=== PATIENT | male | born 1945 | race Caucasian/White ===

== ENCOUNTER 2021-07-10 15:25 | Outpatient (CLI) | payer MEDICARE, SELFPAY ==
--- NOTE | ~2021-07-10 | US_ITS ---
EXAMINATION: US carotid duplex BI DATE: 07/10/2021 16:15 INDICATION: Carotid artery stenosis. TECHNIQUE: Grayscale, color Doppler, and pulsed Doppler images of the cervical carotid arteries were obtained. The degree of vessel stenosis is placed in one of the following categories: normal, <50%, 5 0-69%, >=70% but less than near-occlusion, near-occlusion, or total occlusion. Note that percent sten osis relative to normal distal artery lumen diameter is indirectly measured from velocity measurement s as described by Quentin, et al. Radiology 2003; 229:340-346. COMPARISON: None. FINDINGS: RIGHT: The right common carotid artery (CCA) peak systolic velocity (PSV) is 112 cm/s. The right internal ca rotid artery (ICA) PSV is 78 cm/s. The right ICA end-diastolic velocity (EDV) is 19 cm/s. The right I CA/CCA PSV ratio is 0.7. The ICA lumen is obscured by shadowing plaque. There is antegrade flow in th e right vertebral artery. LEFT: The left CCA PSV is 140 cm/s. The left ICA PSV is 102 cm/s. The left ICA EDV is 32 cm/s. The left ICA /CCA PSV ratio is 0.7. Grayscale and color Doppler images yield an estimate of <50% diameter reductio n from plaque in the ICA. There is antegrade flow in the left vertebral artery. IMPRESSION: 1. <50% stenosis in the right internal carotid artery. 2. <50% stenosis in the left internal carotid artery. Reviewed, dictated and finalized at location A. ING MACHINE OPERATOR
== END 2021-07-10 15:26 | disposition home or self-care (01) ==
LOC: ANHIMG 15:29
PROVIDERS: PCP Internal Medicine; Visit Provider Internal Medicine
DX: I65.23 Occlusion and stenosis of bilateral carotid arteries (principal)
CPT/HCPCS: 93880

== ENCOUNTER 2021-09-04 09:39 | Outpatient (CLI) | payer MEDICARE, SELFPAY | END 2021-09-04 09:40 | disposition home or self-care (01) | LOC: ANHAUDASC 09:40 | PROVIDERS: PCP Internal Medicine; Visit Provider Internal Medicine | DX: H93.13 Tinnitus, bilateral (principal); H90.3 Sensorineural hearing loss, bilateral | CPT/HCPCS: 92557; 92567 ==

== ENCOUNTER 2022-01-05 01:31 | Day surgery (SDC) | payer MEDICARE, SELFPAY ==
[2021-12-20 14:54] VITALS: BMI 26.4
--- NOTE | 2022-01-04 16:50 | P.HP_ITS ---
History of Present Illness History of Present Illness Consent: Risks, benefits, and alternatives have been discussed and questions answered. Patient agrees to proceed with procedure. Chief complaint: hx of colon polyps Narrative: Tay Reed is a 76 year old male who was referred for colon cancer screening. He had an adenomatous polyp removed about 4 years ago. Also both of his parents have had colon cancer. He had some issues with his bowels a while b ack , with constipation. He states he does take a stool softener but the situation is worse . he says the stools are always very narrowing soft. I told that this generally indicates that the stools moving too quickly through his colon, being extruded by his anus because it is too soft. Review of Systems Review of Systems: All systems reviewed & are unremarkable except as noted in HPI and below PMFSH Past Medical History Medical History Constipation Overweight (BMI 25.0-29.9) Social History Social History Smoking packs per day: 2 Smoking cigarettes per day: 40.0 Smoking status: Former smoker Tobacco type: cigarettes Alcohol intake: current Drinks per week: 14 Substance use: never Substance use type: does not use Living arrangements: with family Spiritual care concerns: No Meds Home Medications and Allergies Home Medications Medication Instructions Recorded Confirmed Type atorvastatin 20 mg tablet 20 mg PO DAILY 01/04/21 12/20/21 History ezetimibe 10 mg tablet (Zetia) 10 mg PO DAILY 01/04/21 12/20/21 History metformin 500 mg tablet 500 mg PO DAILY 01/04/21 12/20/21 History multivitamin 1 tablet PO DAILY 01/04/21 12/20/21 History Allergies Allergy/AdvReac Type Severity Reaction Status Date / Time No Known Allergies Allergy Unknown Verified 01/05/22 11:52 Exam Resp: Auscultation: clear to auscultation bilaterally Cardio: Rate: regular rate Rhythm: regular rhythm GI: GI Palp: Yes Soft to palpation and No Tenderness to palpation present (GI) Assessment and Plan Assessment and plan (1) Colon cancer screening: Code(s): Z12.11 - Encounter for screening for malignant neoplasm of colon Status: Acute Assessment and Plan: Colonoscopy with possible biopsy or polypectomy or cautery or injection of substances.
[2022-01-05 11:54] VITALS: BP 134/75; PULSE 80; RESP 16; TEMP 36.2; O2SAT 97; BMI 25.9
[2022-01-05 12:07] LABS: Glucose Point of Care 116 mg/dl (65-105)
[2022-01-05] MEDS: LACTATED RINGERS 1,000 ML 150 ML IV CONT (12:07)
--- NOTE | 2022-01-05 12:25 | P.PNAN_ITS ---
Anes - Initial Pre Proc Eval Procedure: Operation Date: 01/05/22 13:00 Proposed Procedures p Screening Colonoscopy - Landry Castrejon MD Date/Time: 01/05/22 12:25 Surgeon: Landry Castrejon MD Pre Op Diagnosis: hx of colon polyps Patient Data Age: 76 Gender: M Height: 1.8 m Weight: 84.4 kg Last Vital Signs Temp 97.2 F L 01/05/22 11:54 Pulse 80 01/05/22 11:54 Resp 16 01/05/22 11:54 BP 134/75 01/05/22 11:54 Pulse Ox 97 01/05/22 11:54 O2 Del Method Room Air 01/05/22 11:54 Allergies Allergy/AdvReac Type Severity Reaction Status Date / Time No Known Allergies Allergy Unknown Verified 01/05/22 11:52 Home Medications Medication Instructions Recorded Confirmed Type atorvastatin 20 mg tablet 20 mg PO DAILY 01/04/21 01/05/22 History ezetimibe 10 mg tablet (Zetia) 10 mg PO DAILY 01/04/21 01/05/22 History metformin 500 mg tablet 500 mg PO DAILY 01/04/21 01/05/22 History multivitamin 1 tablet PO DAILY 01/04/21 01/05/22 History Laboratory Tests 01/05/22 12:01 POC Capillary Glucose 116 mg/dl H mg/dl (65-105) Patient hx anesthesia problems: none Family hx anesthesia problems: none Results Review: All pre-operative results and documents have been reviewed as part of the pre- operative evaluation. [facility] Past Medical History Medical History Constipation Overweight (BMI 25.0-29.9) Social History Social History Smoking packs per day: 2 Smoking cigarettes per day: 40.0 Smoking status: Former smoker Tobacco type: cigarettes Alcohol intake: current Drinks per week: 14 Substance use: never Substance use type: does not use Living arrangements: with family Spiritual care concerns: No Anes - Eval Final PreProcedure Day of Procedure 01/05/22 12:25 Patient weight: normal Heart: regular rate and rhythm Lungs: clear to auscultation Airway: Mallampati scale class II Neurological: alert and oriented Last oral intake: >/= 8 hours ASA classification: II Emergent: no Anesthetic plan: proceed Anesthesia type and monitoring: general GIVS and standard monitoring Results Review: All pre-operative results and documents have been reviewed as part of the pre-operative evaluation. Informed Consent: The patient's anesthetic plan and its attendant risks and benefits were discussed with the patient/family/POA. Questions were solicited and answers provided to the satisfaction of the patient/family/POA.
[2022-01-05 13:26] VITALS: BP 104/69; PULSE 72; RESP 18; O2SAT 96
[2022-01-05 13:36] VITALS: BP 120/74; PULSE 66; RESP 18; O2SAT 98
[2022-01-05 13:46] VITALS: BP 118/79; PULSE 70; RESP 20; O2SAT 99
== END 2022-01-05 13:53 | disposition home or self-care (01) ==
PROVIDERS: PCP Internal Medicine; Visit Provider Internal Medicine Gastroenterology
PROC: 0DJD8ZZ Inspection of Lower Intestinal Tract, Via Natural or Artificial Opening Endoscopic (ICD-10-PCS; CPT 45378; principal; 2022-01-05 13:00)
DX: Z12.11 Encounter for screening for malignant neoplasm of colon (principal); K63.5 Polyp of colon; Z80.0 Family history of malignant neoplasm of digestive organs; K57.30 Diverticulosis of large intestine without perforation or abscess without bleeding; K64.8 Other hemorrhoids; Z79.84 Long term (current) use of oral hypoglycemic drugs; Z87.891 Personal history of nicotine dependence
CPT/HCPCS: 45380; 82948; 88305; J2704; J7120

== ENCOUNTER 2025-01-29 12:09 | Outpatient (CLI) | payer MEDICARE, SELFPAY ==
--- NOTE | ~2025-01-29 | XR_ITS ---
XR lumbar spine 2-3V Indication: Low back pain Comparison: None Findings: Moderate loss of vertebral heights, no fracture or subluxation. Moderate to severe loss of disc height at L3-4, L4-5 and L5-S1. Soft tissues unremarkable Impression: No acute abnormality. Reviewed, dictated and finalized at location A. Impression: No acute abnormality.
--- OUTSIDE RECORDS SUMMARY | 2025-01-29 12:22 | XMS_ITS | Clinical Summary ---
Author Organization [facility] Address [address] [place] [address] Care Team Providers Care Business Liaison Officer Name Role Phone Hayes Gutiérrez MD Primary Care Provider Allergies No known active allergies Medications No known medications Encounters Date Type Department Care Team Description 01/26/2025 2:00 PM CDT - 01/26/2025 2:03 PM CDT Emergency [facility] Emergency Department [address] [place] [address] Acute left-sided low back pain without sciatica (Primary Dx) Discharge Disposition: Discharge to home or self care from Last 3 Months Social History Tobacco Use Types Packs/Day Years Used Date Smoking Tobacco: Never Assessed Personal Safety Answer Date Recorded Have you ever been in or are you currently in a harmful physical or emotional relationship or is someone making you feel afraid or unsafe? Denies 01/26/2025 Sex and Gender Information Value Date Recorded Sex Assigned at Not on file Legal Sex Male 10:34 AM CDT Gender Identity Not on file Sexual Orientation Not on file Last Filed Vital Signs Vital Sign Reading Time Taken Comments Blood Pressure 156/75 01/26/2025 1:51 PM CDT Pulse 62 01/26/2025 1:51 PM CDT Temperature 36.6 C (97.9 F) 01/26/2025 1:51 PM CDT Respiratory Rate 16 01/26/2025 1:51 PM CDT Oxygen Saturation 98% 01/26/2025 1:51 PM CDT Inhaled Oxygen Concentration - - Weight 84.8 kg (187 lb) 01/26/2025 10:38 AM CDT Height - - Body Mass Index - - Plan of Treatment Health Maintenance Due Date Last Done Comments Depression Screening 1945 Fall Risk Assessment 1945 Hepatitis C Screening 1945 DTaP/Tdap/Td Vaccine (1 - Tdap) 1956 Hepatitis B Screening 09/17/1963 Pneumococcal vaccine 65+ (1 of 1 - PCV) 09/17/1995 Zoster Vaccine (1 of 2) 09/17/1995 Well Visit 65+ 2010 Influenza Vaccine (#1) 2025 Procedures Procedure Name Priority Date/Time Associated Diagnosis Comments CT ABDOMEN PELVIS W CONTRAST ED 01/26/2025 12:58 PM CDT EGFR STAT 01/26/2025 10:57 AM CDT DIFFERENTIAL AUTO STAT 01/26/2025 10: 57 AM CDT CBC WITH AUTO DIFFERENTIAL STAT 01/26/2025 10:57 AM CDT COMPREHENSIVE METABOLIC PANEL STAT 01/26/2025 10:57 AM CDT from Last 3 Months Results * CT Abdomen Pelvis W Contrast (01/26/2025 12:58 PM CDT) Anatomical Region Laterality Modality Body N/A Computed Tomogra phy 01/26/2025 1:1 3 PM CDT Narrative 01/26/2025 1:23 PM CDT EXAM DESCRIPTION: CT ABDOMEN PELVIS W CONTRAST REASON FOR STUDY: pain in left side back/buldge left side abdomen Left sided back pain started Saturday, after cutting down some trees. TECHNIQUE: CT scan of the abdomen and pelvis performed with intravenous and without oral contrast using helical scanning technique with dynamic intravenous contrast injection. Reconstructed coronal and sagittal MPR images reviewed. All images stored on PACS. Automated exposure control was used as a dose optimization technique for this examination. CONTRAST TYPE/DOSE: 75mL of IOVERSOL 350 MG IODINE/ML INTRAVENOUS SYRINGE injected via intravenous COMPARISON: None REFERENCE: Per ACR white paper recommendations, unless otherwise specified no follow-up imaging is recommended for incidental renal and adrenal lesions per consensus recommendations based on imaging criteria. Further lab evaluation could be pursued based on clinical findings. FINDINGS: LOWER CHEST: Severe coronary atherosclerotic calcification. Subsegmental atelectasis. LIVER: No concerning lesions. GALLBLADDER/BILE DUCTS: No significant biliary ductal dilatation. SPLEEN: Normal size. No focal concerning lesions. PANCREAS: No significant ductal dilatation or discrete lesion. ADRENALS: No measurable nodule. KIDNEYS/URETERS: Subcentimeter hypodensities too small to further characterize. No hydronephrosis. BLADDER/URINARY: No significant wall thickening. REPRODUCTIVE: No significant abnormality. GASTROINTESTINAL: Colonic diverticulosis without acute inflammation. Diffuse moderate colonic stool burden. Normal-appearing appendix. LYMPH NODES: No pathologically enlarged abdominal or pelvic lymphadenopathy. PERITONEUM/RETROPERITONEUM: No ascites or free air. VASCULATURE: Multifocal atherosclerotic changes of the abdominal aorta and its major branches. No abdominal aortic aneurysm. MUSCULOSKELETAL: Small fat containing right inguinal hernia. Otherwise, no significant abdominal wall hernia. Postsurgical changes status post left total hip arthroplasty. No definite acute hardware complication. No acute displaced fracture. Multilevel degenerative changes of the visualized spine. OTHER: No significant abnormality. IMPRESSION: 1. No acute abnormality within the abdomen or pelvis. 2. Small fat containing right inguinal hernia. No significant flank or abdominal wall hernia. 3. Incidental and chronic findings as above. THIS IS AN ELECTRONICALLY VERIFIED FINAL REPORT 01/26/2025 1:23 PM - Electronically signed by Chuy Morales M.D. NS: NS Report ID: [id number] Reading Location: [id number] Procedure Note Chuy Morales MD - 01/26/2025 EXAM DESCRIPTION: CT ABDOMEN PELVIS W CONTRAST REASON FOR STUDY: pain in left side back/buldge left side abdomen Left sided back pain started Saturday, after cutting down some trees. TECHNIQUE: CT scan of the abdomen and pelvis performed with intravenousand without oral contrast using helical scanning technique with dynamic intravenous contrast injection. Reconstructed coronal and sagittal MPRimages reviewed. All images stored on PACS. Automated exposure control was usedas a dose optimization technique for this examination. CONTRAST TYPE/DOSE: 75mL of IOVERSOL 350 MG IODINE/ML INTRAVENOUSSYRINGE injected via intravenous COMPARISON: None REFERENCE: Per ACR white paper recommendations, unless otherwise specifiedno follow-up imaging is recommended for incidental renal and adrenal lesionsper consensus recommendations based on imaging criteria. Further labevaluation could be pursued based on clinical findings. FINDINGS: LOWER CHEST: Severe coronary atherosclerotic calcification.Subsegmental atelectasis. LIVER: No concerning lesions. GALLBLADDER/BILE DUCTS: No significant biliary ductal dilatation. SPLEEN: Normal size. No focal concerning lesions. PANCREAS: No significant ductal dilatation or discrete lesion. ADRENALS: No measurable nodule. KIDNEYS/URETERS: Subcentimeter hypodensities too small to further characterize. No hydronephrosis. BLADDER/URINARY: No significant wall thickening. REPRODUCTIVE: No significant abnormality. GASTROINTESTINAL: Colonic diverticulosis without acute inflammation.Diffuse moderate colonic stool burden. Normal-appearing appendix. LYMPH NODES: No pathologically enlarged abdominal or pelviclymphadenopathy. PERITONEUM/RETROPERITONEUM: No ascites or free air. VASCULATURE: Multifocal atherosclerotic changes of the abdominal aortaand its major branches. No abdominal aortic aneurysm. MUSCULOSKELETAL: Small fat containing right inguinal hernia. Otherwise,no significant abdominal wall hernia. Postsurgical changes status post left total hip arthroplasty. No definite acute hardware complication. Noacute displaced fracture. Multilevel degenerative changes of the visualizedspine. OTHER: No significant abnormality. IMPRESSION: 1. No acute abnormality within the abdomen or pelvis. 2. Small fat containing right inguinal hernia. No significant flank or abdominal wall hernia. 3. Incidental and chronic findings as above. THIS IS AN ELECTRONICALLY VERIFIED FINAL REPORT 01/26/2025 1:23 PM - Electronically signed by Chuy Morales M.D. NS: NS Report ID: [id number] Reading Location: [place] [address] Gisel Terry NP [facility] CT PROCEDURES Final Resul t * eGFR (01/26/2025 10:57 AM CDT) eGFR 90 >=60 mL/min/1. 73 m2 Comment: Interpretive Data Reference Interval Normal >/= 90 mL/min/1.73m2 Mildly decreased* 60 - 89 mL/min/1.73m2 Mildly to moderately decreased 45 - 59 mL/min/1.73m2 Moderately to severely decreased 30 - 44 mL/min/1.73m2 Severely decreased 15 - 29 mL/min/1.73m2 Kidney Failure < 15 mL/min/1.73m2 *Relative to young adult level Estimated glomerular filtration rate is determined by the 2020 CKD-EPI equation recommended by the National Kidney Foundation (A Unifying Approach to GFR Estimation: Recommendations of the NKF-ASK Task Force on Reassessing the Inclusion of Race in Diagnosing Kidney Disease, JASN 2020). The CKD-EPI equation should not be used for patients with unstable renal function and has not been validated in children and those over 70. Current interpretive data was last reviewed 2021. Blood 01/26/2025 10:5 7 AM CDT 01/26/2025 11:01 AM CDT us Gisel Terry NP LAB BLOOD ORDERABLES Final Re sult [facility] ([place]) 1 [facility] Department of Laboratories [id number] * Differential, auto (01/26/2025 10:57 AM CDT) Neutrophil abs 4.01 1.50 - 6.50 K/cumm Imm gran abs 0.08 0.00 - 0.10 K/cumm [facility] ([place]) Lymphocyte abs 2.37 0.80 - 3.30 K/cumm [facility] ([place]) Monocyte abs 0.51 0.20 - 0.80 K/cumm [facility] ([place]) Eosinophil abs 0.08 0.00 - 0.50 K/cumm [facility] ([place]) Basophil abs 0.03 0.00 - 0.10 K/cumm [facility] ([place]) Neutrophil pct 56.7 % [facility] ([facility]) Comment: Interpretive Data Percent cell count reference ranges are not reported, since discordance with absolute values may lead to misinterpretation of CBC data. Current Interpretive Data was last revised on 2017. Imm gran pct 1.1 % [facility] ([facility]) Comment: Interpretive Data Percent cell count reference ranges are not reported, since discordance with absolute values may lead to misinterpretation of CBC data. Current Interpretive Data was last revised on 2017. Lymphocyte pct 33.5 % [facility] ([facility]) Comment: Interpretive Data Percent cell count reference ranges are not reported, since discordance with absolute values may lead to misinterpretation of CBC data. Current Interpretive Data was last revised on 2017. Monocyte pct 7.2 % [facility] ([facility]) Comment: Interpretive Data Percent cell count reference ranges are not reported, since discordance with absolute values may lead to misinterpretation of CBC data. Current Interpretive Data was last revised on 2017. Eosinophil pct 1.1 % [facility] ([facility]) Comment: Interpretive Data Percent cell count reference ranges are not reported, since discordance with absolute values may lead to misinterpretation of CBC data. Current Interpretive Data was last revised on 2017. Basophil pct 0.4 % [facility] ([facility]) Comment: Interpretive Data Percent cell count reference ranges are not reported, since discordance with absolute values may lead to misinterpretation of CBC data. Current Interpretive Data was last revised on 2017. Blood 01/26/2025 10:5 7 AM CDT 01/26/2025 11:01 AM CDT us Gisel Terry CLIP LOADING MACHINE ADJUSTER LAB BLOOD ORDERABLES Final Re sult [facility] ([place]) 1 [facility] Department of Laboratories [id number] * (ABNORMAL) CBC with auto differential (01/26/2025 10:57 AM CDT) WBC 7.08 3.80 - 9.90 K/cumm Hgb 16.7 13.0 - 17.5 g/dL [facility] ([place]) Hct 48.6 38.9 - 50.3 % [facility] ([place]) Plt 286 150 - 400 K/cumm [facility] ([place]) MPV 9.3 9.1 - 12.3 fL [facility] ([place]) RBC 5.03 4.30 - 5.80 M/cumm [facility] ([place]) MCV 96.6(H) 81.3 - 96.4 fL [facility] ([place]) MCH 33.2 27.1 - 33.3 pg [facility] ([place]) MCHC 34.4 32.3 - 35.7 g/dL [facility] ([place]) RDW CV 12.6 11.1 - 14.9 % [facility] ([place]) RDW SD 45.1 35.7 - 48.1 fL [facility] NRBC abs 0.00 0.00 - 0.01 K/cumm [facility] ([place]) Blood 01/26/2025 10:5 7 AM CDT 01/26/2025 11:01 AM CDT us Gisel Terry NP LAB BLOOD ORDERABLES Final Re sult [facility] ([place]) 1 [facility] Department of Laboratories [id number] * (ABNORMAL) Comprehensive metabolic panel (01/26/2025 10:57 AM CDT) Sodium 135 135 - 145 mmol/L [facility] Potassium, pl 4.4 3.3 - 4.9 mmol/L [facility] Chloride 98 97 - 110 mmol/L [facility]) CO2 23 22 - 32 mmol/L [facility] ([place]) Anion gap 14 2 - 15 mmol/L [facility] BUN 13 6 - 25 mg/dL [facility] ([place]) Creatinine 0.79(L) 0.80 - 1.30 mg/dL [facility] ([place]) Glucose 135 70 - 199 mg/dL [facility] Comment: Interpretive Data Fasting glucose >/= 126 mg/dl is diagnostic for diabetes. Fasting is defined as no caloric intake for at least 8 hours. Fasting glucose between 100 mg/dl to 125 mg/dl is diagnostic of prediabetes. In a patient with classic symptoms of hyperglycemia or hyperglycemic crisis, a random glucose >/= 200 mg/dl is diagnostic for diabetes. In the absence of unequivocal hyperglycemia, results should be confirmed by repeat testing. The classification and Diagnosis of Diabetes Diabetes Care 2021; 46: S19-S40. Current interpretive data was last revised 2022. Calcium 10.0 8.5 - 10.3 mg/dL [facility] ([place]) Bilirubin, total 0.7 0.1 - 1.2 mg/dL [facility] ([place]) Protein, pl 7.5 6.5 - 8.5 g/dL [facility] ([place]) Albumin 4.7 3.5 - 5.0 g/dL [facility] ([place]) Alk phos 68 40 - 130 Units/L [facility] ([place]) ALT 22 7 - 55 Units/L [facility] ([place]) Comment:Hemolysis present. R esults may be affected. AST 31 10 - 50 Units/L [facility] ([place]) Comment:Hemolysis present. R esults may be affected. Blood 01/26/2025 10:5 7 AM CDT 01/26/2025 11:01 AM CDT us Gisel Terry NP LAB BLOOD ORDERABLES Final Re sult [facility] ([place]) 1 [facility] Department of Laboratories [id number] from Last 3 Months Insurance [employer] MEDICARE Care Teams Business Liaison Officer Relationship Specialty Start Date End Date Hayes Gutiérrez MD [address] [place] [address] DEPT INTERNAL MEDICINE [place] [phone] PCP - General Internal Medicine 01/26/25
--- OUTSIDE RECORDS SUMMARY | 2025-01-29 12:22 | XMS_ITS | Clinical Summary ---
Author Organization [facility] Address [address] [place] [address] Care Team Providers Care Sail Repair Person Name Role Phone Hayes Gutiérrez MD Primary Care Provider Social History Tobacco Use Types Packs/Day Years Used Date Smoking Tobacco: Never Assessed Sex and Gender Information Value Date Recorded Sex Assigned at Not on file Legal Sex Male 2:54 PM CDT Gender Identity Not on file Sexual Orientation Not on file Plan of Treatment Health Maintenance Due Date Last Done Comments Hepatitis C Virus (HCV) Screening 1945 Zoster Immunization (1 of 2) 09/17/1995 SARS-COV-2 Immunization ( season) 2024 03/06/2023, 09/22/2022, 01/19/2022, Additional history exists Influenza Immunization (#1) 01/11/202502/11, 01/19/2022, 01/17/2020, Additional history exists TdaP Immunization Completed 01/02/2020 Pneumococcal Immunization (50+ years) Completed 03/06/2023, 01/30/2016 Respiratory Syncytial Virus (RSV) Immunization (Adult) Completed 03/06/2023 Hepatitis B Immunization Aged Out No longer eligible based on patient's age to complete this topic Human Papillomavirus (HPV) Immunization Aged Out No longer eligible based on patient's age to complete this topic Meningococcal Immunization (ACWY) Aged Out No longer eligible based on patient's age to complete this topic Rotavirus Immunization Aged Out No lo nger eligible based on patient's age to complete this topic Insurance MEDICARE [facility] [employer] endocrinology physician Care Teams Sail Repair Person Relationship Specialty Start Date End Date Haeys Gutiérrez MD PCP - General Internal Medicine 11/08/23
== END 2025-01-29 12:10 | disposition home or self-care (01) ==
PROVIDERS: PCP Internal Medicine
DX: M54.50 Low back pain, unspecified (principal)
CPT/HCPCS: 72100

== ENCOUNTER 2025-02-01 07:45 | Outpatient (CLI) | payer MEDICARE, SELFPAY ==
--- NOTE | ~2025-02-01 | US_ITS ---
Examination: US abdomen complete Clinical History: ABD DISCOMFORT;ABD PAIN . Comparison: None Technique: Complete abdominal sonography Findings: Liver: Normal size. Normal echotexture. No intrahepatic biliary ductal dilatation. Normal hepatopedal flow main portal vein. A few calcifications left lobe Common duct: Normal caliber, 3 mm. Gallbladder: No stones. No wall thickening. No pericholecystic fluid. Spleen: Unremarkable. Pancreas: Largely obscured by bowel gas. Kidneys: A few small parenchymal calcifications left kidney. Aorta: No aneurysmal dilatation. Retrohepatic IVC: Unremarkable. IMPRESSION: 1. No acute findings. Reviewed, dictated and finalized at location R. IMPRESSION: 1. No acute findings.
--- OUTSIDE RECORDS SUMMARY | 2025-02-01 08:03 | XMS_ITS | Clinical Summary ---
Author Organization [facility] Address [address] [place] [address] Care Team Providers Care Revenue Coordinator Name Role Phone Hayes Gutiérrez MD Primary Care Provider [phone] Social History Tobacco Use Types Packs/Day Years [...] age to complete this topic Insurance MEDICARE [facility] FIN obstetrical nurse Care Teams Revenue Coordinator Relationship Specialty Start Date End Date Hayes Gutiérrez MD PCP - General Internal Medicine 11/08/23
--- OUTSIDE RECORDS SUMMARY | 2025-02-01 08:03 | XMS_ITS | Clinical Summary ---
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 NS: NS Report ID: [id number] Reading Location: [id number] Procedure Note Chuy Morales MD - 01/26/2025 [...] Chuy Morales M.D. NS: NS Report ID: [id number] Reading Location: [place] [address] Gisel Terry NP IM CT PROCEDURES Final Resul t * eGFR [...] BLOOD ORDERABLES Final Re sult [facility] ([place]) [facility] Department [place] [address] * Differential, auto (01/26/2025 10:57 AM CDT) [...] 01/26/2025 11:01 AM CDT us Gisel Terry [employer] LAB BLOOD ORDERABLES Final Re sult [facility] ([place]) [facility] Department [place] [address] * (ABNORMAL) CBC with auto differential (01/26/2025 [...] ([place]) MCH 33.2 27.1 - 33.3 pg [facility] MCHC 34.4 32.3 - 35.7 g/dL [facility] ([place]) RDW CV 12.6 11.1 - 14.9 % [facility] ([place]) RDW SD 45.1 35.7 - 48.1 fL [facility] ([place]) NRBC abs 0.00 0.00 - 0.01 K/cumm [facility] ([place]) Blood 01/26/2025 10:5 7 AM CDT 01/26/2025 11:01 AM CDT us Gisel Terry NP LAB BLOOD ORDERABLES Final Re sult [facility] ([place]) 1 [facility] Department [place] [address] * (ABNORMAL) Comprehensive metabolic panel (01/26/2025 10:57 AM CDT) Sodium 135 135 - 145 mmol/L [facility] ([place]) Potassium, pl 4.4 3.3 - 4.9 mmol/L [facility] ([place]) Chloride 98 97 - 110 mmol/L [facility]) CO2 23 22 - 32 mmol/L [facility] ([place]) Anion gap 14 2 - 15 mmol/L [facility] ([place]) BUN 13 6 - 25 mg/dL [facility] ([place]) Creatinine 0.79(L) 0.80 - 1.30 mg/dL [facility] ([place] Glucose 135 70 - 199 mg/dL [facility] ([place]) Comment: Interpretive Data Fasting glucose [...] classification and Diagnosis of Diabetes Diabetes Care 202; 46: S19-S40. Current interpretive data was last [...] Final Re sult [facility] ([place]) [address] [facility] Department [place] [address] from Last 3 Months Insurance [employer] INSURANCE [employer] MEDICARE Care Teams Scrubber Machine Tender Relationship Specialty Start Date End Date Hayes Gutiérrez MD [address] [place] [address] [place] [address] PCP - General Internal Medicine 01/26/25
== END 2025-02-01 07:46 | disposition home or self-care (01) ==
PROVIDERS: PCP Internal Medicine
DX: R10.9 Unspecified abdominal pain (principal)
CPT/HCPCS: 76700